=== PATIENT | female | born 1965 | race Hispanic/Latino ===

== ENCOUNTER 2017-09-14 07:38 | Emergency (ER) | payer OTHER ==
[~2017-09-14] VITALS: Ht 162.6 cm; Wt 93.9 kg
[2017-09-14] MEDS ORDERED: PREDNISONE20 MG PO (08:00)
[2017-09-14] MEDS ORDERED: NABUMETONE500 MG PO (08:01)
== END 2017-09-14 08:55 | disposition home or self-care (01) ==
LOC: ED 07:38
PROC: 0S9C3ZZ Drainage of Right Knee Joint, Percutaneous Approach (ICD-10-PCS; principal; 2017-09-14)
DX: M25.561 Pain in right knee (principal); Z79.52 Long term (current) use of systemic steroids; Z79.899 Other long term (current) drug therapy
CPT/HCPCS: 20610; 99283; J3301

== ENCOUNTER 2018-12-22 07:40 | Day surgery (SDC) | payer OTHER ==
[~2018-12-22] VITALS: Ht 162.6 cm; Wt 92.1 kg
[~2018-12-22 07:40] MED LIST: MULTIVITAMINS1 EAC8 PO; NABUMETONE500 MG PO; PREDNISONE20 MG PO
--- NOTE | 2018-12-22 12:50 | NUR ---
12/22/18 1250 Sheets,Mary Ann 1242 PT ARRIVED TO PACU ON 6L VIA MASK, O2 SAT 90%. PT ENCOURGED TO COUGH. PT ABLE TO FOLLOW COMMANDS AND REACTIVE TO TACTILE STIMULI. RESP EVEN AND UNLABORED. 1248 PT WOKE TO TACTILE STIMULI AND DENIES PAIN AND NAUSEA. PT ABLE TO MOVE FINGERS AND DENIES ANY NUMBNESS OR TINGLING IN RIGHT HAND. PT BACK TO SLEEP. ICE IN PLACE ON RIGHT SHOULDER.
[2018-12-22] MEDS ORDERED: ULTRAM50 MG PO (15:11)
[2018-12-22] MEDS ORDERED: NORCO 7.5-3251 EACH PO (15:12)
--- NOTE | 2018-12-22 15:14 | NUR ---
PT UP TO USE BATHROOM AND TOLERATES AMBULATION. PT ABLE TO VOID AND DENIES NAUSEA/PAIN. pT REPORTS NUMBNESS IN RIGHT THUMB. CMS INTACT ON RUE. PT MEETS DC CRITERIA
--- NOTE | 2018-12-22 15:42 | NUR ---
1535- VSS. IV DC'D WNL. DC INSTRUCTIONS WITH PRECAUTIONS PROVIDED TO PT AND . PT DENIES FURTHER QUESTIONS AND VERBALIZES UNDERSTANDING. PRESRIPTION GIVEN TO PT. PT TRANSPORTED TO VEHILCE DRIVEN BY IN WHEELCHAIR.
--- NOTE | 2018-12-24 07:10 | OR ---
[facility] [address], [place] [address] Signed DATE OF OPERATION: 12/22/2018 SURGEON: Raf Jimenez MD PREOPERATIVE DIAGNOSIS: Rotator cuff tear with impingement, right shoulder. POSTOPERATIVE DIAGNOSES: Impingement right shoulder with labral tear and acromioclavicular joint arthritis. Rotator cuff tear was only partial thickness. PROCEDURE PERFORMED: Right shoulder arthroscopy with subacromial decompression, Darius debridement of labrum, and debridement of partial-thickness rotator cuff tear. WHAT WAS DONE: The patient was taken to the operating room. After anesthesia was induced and the airway secured, the patient was positioned, prepped, and draped in the routine sterile fashion. She was then placed in the modified beach chair position and the bony topography was outlined with a skin marking pen. The arthroscope was inserted through the standard posterior portal and an anterior portal was created using a switching stick technique. We then introduced the probe. There was fairly significant fraying of the anterior and superior labrum, but the biceps anchor appeared unremarkable. I did a biceps tendon. We therefore introduced the VAPR device and debrided the labrum and a small portion of the biceps tendon. We then gently abducted the shoulder and we were able to inspect both the insertion of the subscap, the supraspinatus, and the infraspinatus. There was some fraying of the supraspinatus, but no full-thickness tears. We gently debrided the articular sided partial thickness tear. We then maneuvered the scope into the subacromial space, where there was a rather dense bursitis. An auxiliary lateral portal was created and again we introduced the vapor and did a bursectomy. The bursal side of the rotator cuff was completely unremarkable. We therefore used the VAPR to remove the soft tissue off the undersurface of the acromion and the undersurface of the AC joint. We then introduced a román and did a generous subacromial decompression. We withdrew the román and redirected it through the anterior portal into the AC joint and used the bur to do a Darius procedure removing about 8 mm of the distal clavicle. At this point, we appeared to completely decompress the rotator cuff and the AC joint. Subacromial space was irrigated and instruments were withdrawn. The wounds were closed and sterile dressings applied. She was placed in a sling, awakened, and taken to recovery room, where she arrived in stable condition. Counts were correct and antibiotic protocols Electronically Signed By: RAF JIMENEZ MD 12/24/18 0710 PATIENT NAME: MARCELA SEVERINOIGUEZ OPERATIVE REPORT DATE OF : 69 REPORT #: [id number] PHYSICIAN: RAF JIMENEZ MD PCP: ALEX COHEN REPORT IS CONFIDENTIAL AND NOT TO BE RELEASED WITHOUT AUTHORIZATION [address] [address] Signed were followed. MD AILYN SarabiaB/MODL /[id number] Copies: ~ Electronically Signed By: RAF JIMENEZ MD 12/24/18 0710 PATIENT NAME: MARCELA SEVERINO [facility] OPERATIVE REPORT DATE OF : 69 REPORT #: [id number] PHYSICIAN: RAF JIMENEZ MD PCP: ALEX COHEN REPORT IS CONFIDENTIAL AND NOT TO BE RELEASED WITHOUT AUTHORIZATION
== END 2018-12-22 15:35 | disposition home or self-care (01) ==
LOC: OPS 07:40 → DS 07:40 → OPS 10:30
PROVIDERS: Orthopaedic Surgery
PROC: 0RNJ4ZZ Release Right Shoulder Joint, Percutaneous Endoscopic Approach (ICD-10-PCS; 2018-12-22)
PROC: 0PB94ZZ Excision of Right Clavicle, Percutaneous Endoscopic Approach (ICD-10-PCS; principal; 2018-12-22 10:30)
DX: M75.111 Incomplete rotator cuff tear or rupture of right shoulder, not specified as traumatic (principal); M75.41 Impingement syndrome of right shoulder; M19.011 Primary osteoarthritis, right shoulder; S43.491A Other sprain of right shoulder joint, initial encounter
CPT/HCPCS: 01630; C1713; J0330; J0690; J1100; J1885; J2405; J2704; J2795; J3010; J7120